=== PATIENT | male | born 1985 | race Caucasian/White ===

== ENCOUNTER 2021-06-21 05:29 | Emergency (ER) | payer OTHER ==
[~2021-06-21] VITALS: Ht 180.3 cm; Wt 90.7 kg
--- NOTE | 2021-06-21 05:29 | NUR ---
KARINE FUNEZ, PREBOOK. TAKEN TO CHAIR C
[2021-06-21 05:33] VITALS: BP 125/77
--- NOTE | 2021-06-21 05:45 | NUR ---
Dr. Purdy examining patient.
[2021-06-21 06:00] VITALS: BP 125/77
--- NOTE | 2021-06-21 06:01 | NUR ---
PT SEEN AND ASSESSED BY ERMD. NO NURSING INTERVENTIONS NEEDED
--- NOTE | 2021-06-21 06:02 | NUR ---
PATIENT BIB [employer]. PATIENT EXAMINED BY DR. CONRAD. PATIENT MEDICALLY CLEARED AND RELEASED IN CUSTODY IN STABLE CONDITION. ORIGINAL PRE-BOOK FORM GIVEN TO OFFICER MY[employer]LE.
== END 2021-06-21 06:02 ==
LOC: MED 05:29
DX: E11.9 Type 2 diabetes mellitus without complications (principal); I10 Essential (primary) hypertension; Z02.89 Encounter for other administrative examinations; V98.8XXA Other specified transport accidents, initial encounter; Y93.89 Activity, other specified; Y92.89 Other specified places as the place of occurrence of the external cause; Y99.8 Other external cause status
CPT/HCPCS: 99283